=== PATIENT | male | born 1970 | race Hispanic/Latino ===

== ENCOUNTER 2024-08-21 18:31 | Emergency (ER) | payer OTHER ==
[~2024-08-21] VITALS: Ht 172.7 cm; Wt 88.5 kg
[2024-08-21 18:40] VITALS: PULSE 78; RESP 18; TEMP 98.9; O2SAT 100
[2024-08-21] MEDS ORDERED: MEDROL4 M2 PO (18:52)
[2024-08-21] MEDS ORDERED: ORPHENADRINE C100 MG PO (18:52)
[2024-08-21] MEDS: ORPHENADRINE CITRATE 30 MG/ML VIAL IM ONE (19:01)
[2024-08-21] MEDS: KETOROLAC TROMETHAMINE 60 MG/2 ML VIAL IM ONE (19:04)
== END 2024-08-21 19:09 | disposition home or self-care (01) ==
LOC: ER 18:52
DX: M54.42 Lumbago with sciatica, left side (principal); I10 Essential (primary) hypertension; E78.5 Hyperlipidemia, unspecified
CPT/HCPCS: 99282